=== PATIENT | female | born 1985 | race African-American/Black ===

== ENCOUNTER 2024-05-06 15:04 | Emergency (ER) | payer OTHER ==
[~2024-05-06] VITALS: Ht 167.6 cm; Wt 113.4 kg
[2024-05-06] MEDS ORDERED: TRAMADOL HCL 50 MG TABLET PO ONE (16:45)
== END 2024-05-06 17:37 | disposition left against medical advice (07) ==
LOC: ER 15:04
DX: S80.02XA Contusion of left knee, initial encounter (principal); W19.XXXA Unspecified fall, initial encounter; Y93.89 Activity, other specified; Y92.59 Other trade areas as the place of occurrence of the external cause; Y99.9 Unspecified external cause status